=== PATIENT | female | born 1980 | race Caucasian/White ===

== ENCOUNTER 2017-04-02 19:15 | Emergency (ER) | payer BC, OTHER ==
[2017-04-02 19:25] VITALS: BP 135/75; PULSE 82; TEMP 98.3; BMI 21.7
[2017-04-02] MEDS ORDERED: DIPHTH,PERTUSS(ACELL),TET 0.5 ML DISP.SYRIN IM ONE (22:17)
--- NOTE | 2017-04-02 22:24 | PDOC ---
History of Present Illness - General Chief Complaint: Laceration Stated Complaint: LACERATION Time Seen by Provider: 04/02/17 20:35 History Source: Patient Exam Limitations: No Limitations - History of Present Illness Initial Comments: 04/03/17 15:04 My Chief complaint: lacerations of b/l thumbs History of present illness: Patient is a 36-year-old female here today after sustaining lacerations to bilateral thumbs when trying to open a can of soup prior to arrival here. Patient is unsure whether or not she is up-to-date with tetanus. Patient applied pressure to control bleeding of lacerations. Left thumb laceration superficial right thumb has a deeper linear laceration to distal palmar aspect. Patient has full range of motion of digits. Patient denies any numbness of digits or hands. 04/03/17 15:08 Occurred: reports: just prior to arrival Severity: reports: mild Pain Location: reports: upper extremity (b/l thumb) Method of Injury: Yes: other (left thumb dorsal aspect laceration, rt. distal thumb palmar aspect laceration) Modifying Factors: improves with: other (pressure to wounds ) Loss of Consciousness: no loss of consciousness Associated Symptoms (Fall): denies symptoms Past History - Past Medical History Allergies/Adverse Reactions: Allergies Allergy/AdvReac Type Severity Reaction Status Date / Time Sulfa (Sulfonamide Allergy Verified 04/02/17 19:26 Antibiotics) Home Medications: Ambulatory Orders NK [No Known Home Medication] 04/02/17 Other medical history: pt denies - Psycho/Social/Smoking Cessation Hx Suicidal Ideation: No Smoking History: Never smoked Hx Alcohol Use: No Drug/Substance Use Hx: No Substance Use Type: None Review of Systems - Review of Systems Constitutional: No: Symptoms Reported HEENTM: No: Symptoms Reported Respiratory: No: Symptoms reported Cardiac (ROS): No: Symptoms Reported ABD/GI: No: Symptoms Reported : No: Symptoms Reported Musculoskeletal: No: Symptoms Reported Integumentary: Yes: Other (laceration left dorsal thumb superfical, rt. distal palmar laceration linear) Neurological: No: Symptoms reported *Physical Exam - Vital Signs Last Vital Signs Temp Pulse Resp BP Pulse Ox 98.3 F 82 18 135/75 100 04/02/17 19:22 04/02/17 19:22 04/02/17 19:22 04/02/17 19:22 04/02/17 19:22 - Physical Exam General Appearance: Yes: Appropriately Dressed Comments:: 04/03/17 15:06 radial pulse 4 + b/l Extremity: positive: Normal Capillary Refill, Normal Range of Motion (b/l thumbs dip jt, mcp jt b/l ) Integumentary: positive: Normal Color, Other (superfical laceration left thumb over dip jt approx 0.5 cm x 0.25 cm and linear laceration left distal palmar thumb approx 2.8 cm x 0.25 cm ) Neurologic: positive: Alert, Normal Response, Respond to painful stimul (b/l thumb ) Procedures - Consent Consent obtained: From Patient - Laceration/Wound Repair Both Distal Volar Finger Wound Length: 2.6 to 5.0 cm Wound Explored: clean Wound's Depth, Shape: linear Irrigated w/ Saline: Yes Betadine Prep: Yes Anesthesia: 1% Lidocaine Amount of Anesthetic (ccs): 4 Wound Repaired With: Sutures, Dermabond Suture Size/Type: 4:0, other (left dorsal thumb ) Number of Sutures: 5 Sterile Dressing Applied: Yes Splint Applied: Yes (left thumb ) Sling Applied: No Medical Decision Making - Medical Decision Making 04/03/17 15:08 Patient is a 36-year-old female here today after sustaining lacerations to bilateral thumbs when trying to open a can of soup prior to arrival here. Patient is unsure whether or not she is up-to-date with tetanus. Patient applied pressure to control bleeding of lacerations. Left thumb laceration superficial right thumb has a deeper linear laceration to distal palmar aspect. Patient has full range of motion of digits. Patient denies any numbness of digits or hands. b/L thumb laceration PLAN: dermabond to left thumb superficial laceration, telfa/roberta finger splint applied right thumb 5 interrupted sutures applied telfa and roberta applied TDAP 0.5 ml Im given *DC/Admit/Observation/Transfer Diagnosis at time of Disposition: Laceration of thumb without complication Qualifiers: Encounter type: initial encounter Laterality: unspecified laterality Qualified Code(s): S61.019A - Laceration without foreign body of unspecified thumb without damage to nail, initial encounter - Discharge Dispostion Disposition: HOME Condition at time of disposition: Improved - Referrals Referrals: Preeti Elizondo MD [Primary Care Provider] - - Patient Instructions Additional Instructions: Keep lacerations dry tonight then tomorrow may wash with antibacterial soap and water pat dry and apply a tiny amount of bacitracin ointment to right thumb laceration twice daily cover with dressing during the day and allow it to air out at night Duration to left thumb do not scrub glue off allow it to fall off on its home once it does may cleanse twice daily with antibacterial soap and water pat dry and apply a tiny amount of bacitracin until scab falls off wear finger immoblizer for next 2 days, may take off at night take ibuprofen or acetaminophen as needed as directed by filter changer With your primary care provider within the next few days for wound check and return to emergency room in 10 days for suture removal or sooner if any redness around wound was or discharge from wounds or Fever today your tetanus, diphtheria and pertussis vaccine was updated patient Voiced understanding of discharge instructions and all questions were answered - Post Discharge Activity
== END 2017-04-02 22:41 | disposition home or self-care (01) ==
LOC: JER 19:15 → JERFT 19:15
PROC: 3E0234Z Introduction of Serum, Toxoid and Vaccine into Muscle, Percutaneous Approach (ICD-10-PCS; principal; 2017-04-02)
PROC: 0HQFXZZ Repair Right Hand Skin, External Approach (ICD-10-PCS; 2017-04-02)
PROC: 0JQK0ZZ Repair Left Hand Subcutaneous Tissue and Fascia, Open Approach (ICD-10-PCS; 2017-04-02)
PROC: 2W3JX1Z Immobilization of Right Finger using Splint (ICD-10-PCS; 2017-04-02)
DX: S61.012A Laceration without foreign body of left thumb without damage to nail, initial encounter (principal); S61.011A Laceration without foreign body of right thumb without damage to nail, initial encounter; W26.8XXA Contact with other sharp object(s), not elsewhere classified, initial encounter; Y93.G1 Activity, food preparation and clean up; Y92.010 Kitchen of single-family (private) house as the place of occurrence of the external cause; Y99.8 Other external cause status
CPT/HCPCS: 90715; 99281-25

== ENCOUNTER 2017-04-12 13:44 | Emergency (ER) | payer BC ==
[2017-04-12 13:50] VITALS: BP 121/60; PULSE 73; TEMP 98; BMI 22.2
--- NOTE | 2017-04-12 14:42 | PDOC ---
Suture Removal/Wound Check HPI - History of Present Illness Chief Complaint: Suture/Staple Removal(Here) Stated Complaint: STAPLE/SUTURE REMOVAL Time Seen by Provider: 04/12/17 13:49 History Source: Yes: Patient Exam Limitations: Yes: No Limitations Treated at: [facility] ED - Previous ED Treatment Type of procedure performed on last visit: Yes: Laceration Repair Tetanus Immunization: Yes: Up to Date Antibiotics Prescribed: No - Onset of Previous Treatment Date of Occurence: 04/12/17 Past History - Travel Traveled outside of the country in the last 30 days: No Close contact w/someone who was outside of country & ill: No - Past Medical History Allergies/Adverse Reactions: Allergies Sulfa (Sulfonamide Antibiotics) Allergy (Verified 04/12/17 13:49) Home Medications: Ambulatory Orders NK [No Known Home Medication] 04/02/17 - Social History Smoking Status: Never smoked Suture Removal/Wound Check PE - Physical Exam Laceration/Wound Check Symptoms: reports: None Comments: 04/12/17 14:40 poorly approximated suture line the pad of right thumb. Has some inflammatory changes, questionable ALLERGIC reaction to sutures with some serous drainage noted at puncture wounds.. of finger, is mildly tender, but no erythema, joint tenderness, streaking, or evidence of cellulitis. Current Severity Level: None Location of Laceration/Wound: right: Hand (thumb- sutured ) *Review of Systems - Review of Systems Able to Perform ROS?: No Constitutional: Yes: Symptoms Reported, Malaise HEENTM: No: Symptoms Reported Respiratory: No: Symptoms reported Integumentary: No: Erythema Neurological: Yes: Symptoms reported Medical Decision Making - Medical Decision Making 04/12/17 14:42 *DC/Admit/Observation/Transfer Diagnosis at time of Disposition: Visit for suture removal - Discharge Dispostion Disposition: HOME Condition at time of disposition: Stable Admit: No - Patient Instructions Printed Discharge Instructions: DI for Suture Removal
== END 2017-04-12 14:53 | disposition home or self-care (01) ==
LOC: JERFT 13:44
DX: Z48.02 Encounter for removal of sutures (principal)
CPT/HCPCS: 99281-25